=== PATIENT | male | born 1945 | race African-American/Black ===

== ENCOUNTER 2016-11-26 02:42 | Emergency (ER) | payer MEDICARE, MEDICAID ==
[~2016-11-26] VITALS: Ht 172.7 cm; Wt 109.0 kg
[~2016-11-26 02:42] MED LIST: ASPI-1159 PO; ATOR80TA PO; BICA50TA2 PO; CARV3.1242 PO; DEXT15DR5 EACHEYE; LOSA50TA20 PO; RANO500T3 PO; SPIR25TA4 PO; WARF5TAB73 PO
[2016-11-26] MEDS ORDERED: ACETAMINOPHEN WITH CODEINE 300/30MG TABLET PO ONE (06:30)
[2016-11-26] MEDS ORDERED: LIDOCAINE HCL 1% 20ML VIAL (Pyxis) INJ MC ONE (06:30)
[2016-11-26 07:30] VITALS: BP 138/84
== END 2016-11-26 07:36 | disposition home or self-care (01) ==
LOC: ER 02:42
DX: N49.2 Inflammatory disorders of scrotum (principal); Z79.82 Long term (current) use of aspirin; Z88.4 Allergy status to anesthetic agent; Z79.01 Long term (current) use of anticoagulants
CPT/HCPCS: 99283; J3490

== ENCOUNTER 2017-05-03 09:45 | Emergency (ER) | payer MEDICARE, MEDICAID ==
[~2017-05-03] VITALS: Ht 172.7 cm; Wt 113.0 kg
[2017-05-03 12:30] VITALS: BP 168/74
== END 2017-05-03 12:54 | disposition home or self-care (01) ==
LOC: ER 09:52
DX: L03.211 Cellulitis of face (principal); L02.01 Cutaneous abscess of face; J06.9 Acute upper respiratory infection, unspecified; M79.604 Pain in right leg; I10 Essential (primary) hypertension; H40.9 Unspecified glaucoma; Z88.5 Allergy status to narcotic agent; Z79.82 Long term (current) use of aspirin; Z79.01 Long term (current) use of anticoagulants
CPT/HCPCS: 71010; 93971; 99284